=== PATIENT | female | born 1970 | race Caucasian/White ===

== ENCOUNTER 2022-05-19 00:50 | Emergency (ER) | payer MEDICARE, OTHER ==
[~2022-05-19] VITALS: Ht 167.6 cm; Wt 90.7 kg
[2022-05-19 02:43] LABS: Bun/Creatinine Ratio 16.2 (12.0-20.0); Calcium, Blood 8.5 mg/dL (8.5-10.1); Creatinine, Blood 0.74 mg/dL (0.40-1.00); Potassium, Blood 3.5 mmol/L (3.5-5.5); Prolactin 8.3 ng/mL (2.74-19.64)
== END 2022-05-19 04:43 | disposition home or self-care (01) ==
LOC: ER 00:50
PROVIDERS: Student in an Organized Health Care Education/Training Program
DX: R56.9 Unspecified convulsions (principal); E11.9 Type 2 diabetes mellitus without complications; F10.129 Alcohol abuse with intoxication, unspecified; Y90.8 Blood alcohol level of 240 mg/100 ml or more; Z79.84 Long term (current) use of oral hypoglycemic drugs; Z79.899 Other long term (current) drug therapy
CPT/HCPCS: 36415; 80048; 84146; 96374; 99284-25; G0480; J1953; J7030

== ENCOUNTER → 2022-07-17 | Outpatient (CLI) | payer MEDICARE, OTHER ==
[2022-07-18 09:33] LABS: BASOPHILS ABSOLUTE AUTO 0.08 K/mm3 (0.00-0.23); BASOPHILS PERCENT AUTO 1 % (0-2); EOSINOPHILS ABSOLUTE AUTO 0.19 K/mm3 (0.00-0.68); EOSINOPHILS PERCENT AUTO 2 % (0-6); Hematocrit 42.3 % (33.0-51.0); Hemoglobin 13.9 g/dL (11.5-16.0); IMMATURE GRAN ABSOLUTE AUTO 0.02 K/mm3 (0.00-0.10); IMMATURE GRAN PERCENT AUTO 0 % (0-1); LYMPHOCYTES ABSOLUTE AUTO 2.74 K/mm3 (0.84-5.20); LYMPHOCYTES PERCENT AUTO 28 % (21-46); MONOCYTES ABSOLUTE AUTO 0.56 K/mm3 (0.16-1.47); MONOCYTES PERCENT AUTO 6 % (4-13); Mean Corpuscular HGB 28.9 pg (26.0-34.0); Mean Corpuscular HGB Conc 32.9 g/dL (31.5-36.5); Mean Corpuscular Volume 88 fL (80-100); Mean Platelet Volume 10.9 fL (9.1-12.4); NEUTROPHILS ABSOLUTE AUTO 6.37 K/mm3 (1.96-9.15); NEUTROPHILS PERCENT AUTO 64 % (41-73); Platelet Count 286 K/mm3 (150-400); RDW Standard Deviation 41.8 fL (35.1-46.3); Red Blood Cell Count 4.81 M/mm3 (3.80-5.20); White Blood Cell Count 9.96 K/mm3 (4.00-11.30)
[2022-07-18 10:12] LABS: Very Low Density Lipoprot Chol 39 mg/dL (6-32)
[2022-07-18 10:20] LABS: Alanine Aminotransfer (ALT/SGP 34 U/L (12-78); Albumin, Blood 3.6 g/dL (3.4-5.0); Albumin/Globulin Ratio 0.8 (0.8-1.8); Alk Phos 116 U/L (50-136); Anion Gap 5 mmol/L (6-16); Aspartate Aminotrans (AST/SGOT 27 U/L (12-37); Bilirubin, Total 0.5 mg/dL (0.1-1.0); Blood Urea Nitrogen 12 mg/dL (8-24); Bun/Creatinine Ratio 16.3 (12.0-20.0); CHOL/HDL RATIO 4.3; CO2, Blood 26 mmol/L (21-32); Calcium, Blood 8.8 mg/dL (8.5-10.1); Chloride, Blood 104 mmol/L (98-108); Cholesterol 216 mg/dL (50-200); Creatinine, Blood 0.73 mg/dL (0.40-1.00); Globulin, Blood 4.3 g/dL (2.2-4.0); Glomerular Filtration Rate 100 (60-); Glucose, Blood 112 mg/dL (70-99); HDL Cholesterol 50 mg/dL (>39); LDL/HDL RATIO 2.5; Low Density Lipoprotein Chol 127 mg/dL (0-110); Potassium, Blood 3.9 mmol/L (3.5-5.5); Sodium, Blood 135 mmol/L (136-145); Total Protein, Blood 7.9 g/dL (6.4-8.2); Triglycerides 197 mg/dL (30-160)
== END | disposition home or self-care (01) ==
LOC: LAB SHORT 15:30 → LAB 15:30
PROVIDERS: Family Medicine
DX: R10.9 Unspecified abdominal pain (principal); Z79.899 Other long term (current) drug therapy
CPT/HCPCS: 80053; 80061; 80177; 84443; 85025; 87086

== ENCOUNTER → 2024-03-05 | Outpatient (CLI) | payer MEDICARE, OTHER ==
[2024-03-06 11:39] LABS: Bacterial Vaginosis PCR Negative (NEGATIVE); Candida Group, PCR NOT DETECTED (NOT DETECT)
[2024-03-06 11:40] LABS: Candida glabrata-krusei, PCR DETECTED (NOT DETECT)
== END ==
LOC: LAB SHORT 16:06 → LAB 16:06
PROVIDERS: Student in an Organized Health Care Education/Training Program
DX: N89.8 Other specified noninflammatory disorders of vagina (principal); R30.0 Dysuria
CPT/HCPCS: 87086; 87481; 87661; 87801

== ENCOUNTER 2024-05-09 15:09 | Emergency (ER) | payer MEDICARE, OTHER ==
[~2024-05-09] VITALS: Ht 175.3 cm; Wt 113.4 kg
[2024-05-09 15:19] VITALS: BP 131/78
[2024-05-10] MEDS ORDERED: LEVE500 PO (18:07)
[2024-05-10] MEDS ORDERED: GABA300 PO (18:08)
[2024-05-10] MEDS ORDERED: PANT40 PO (18:08)
[2024-05-10] MEDS ORDERED: LEVSOD112 PO (18:08)
[2024-05-10] MEDS ORDERED: PRAZ2 PO (18:09)
[2024-05-10] MEDS ORDERED: METF500 PO (18:09)
[2024-05-10] MEDS ORDERED: PRAZ5 PO (18:09)
== END 2024-05-09 17:31 | disposition left against medical advice (07) ==
LOC: ER 15:09
DX: R30.0 Dysuria (principal); J45.909 Unspecified asthma, uncomplicated; Z88.0 Allergy status to penicillin; Z88.5 Allergy status to narcotic agent
CPT/HCPCS: 99282

== ENCOUNTER 2024-05-10 04:39 | Inpatient (IN) | payer MEDICARE, OTHER ==
[~2024-05-10] VITALS: Ht 175.3 cm; Wt 113.4 kg
[2024-05-10] MEDS ORDERED: FentaNYL Citrate 50 MCG/ML 2 ML Injection IV ONE ×2 (05:15→08:45)
[2024-05-10] MEDS ORDERED: NS 1,000 ML IV SCH (05:15)
[2024-05-10 06:13] LABS: BASOPHILS ABSOLUTE AUTO 0.09 K/mm3 (0.00-0.23); BASOPHILS PERCENT AUTO 1 % (0-2); EOSINOPHILS ABSOLUTE AUTO 0.32 K/mm3 (0.00-0.68); EOSINOPHILS PERCENT AUTO 3 % (0-6); Hematocrit 42.7 % (33.0-51.0); Hemoglobin 13.9 g/dL (11.5-16.0); IMMATURE GRAN ABSOLUTE AUTO 0.04 K/mm3 (0.00-0.10); IMMATURE GRAN PERCENT AUTO 0 % (0-1); LYMPHOCYTES ABSOLUTE AUTO 3.32 K/mm3 (0.84-5.20); LYMPHOCYTES PERCENT AUTO 26 % (21-46); MONOCYTES ABSOLUTE AUTO 0.79 K/mm3 (0.16-1.47); MONOCYTES PERCENT AUTO 6 % (4-13); Mean Corpuscular HGB 28.3 pg (26.0-34.0); Mean Corpuscular HGB Conc 32.6 g/dL (31.5-36.5); Mean Corpuscular Volume 87 fL (80-100); Mean Platelet Volume 10.1 fL (9.1-12.4); NEUTROPHILS ABSOLUTE AUTO 8.18 K/mm3 (1.96-9.15); NEUTROPHILS PERCENT AUTO 64 % (41-73); Platelet Count 313 K/mm3 (150-400); RDW Coefficient Variation 12.5 % (11.7-14.2); RDW Standard Deviation 39.8 fL (35.1-46.3); Red Blood Cell Count 4.92 M/mm3 (3.80-5.20); White Blood Cell Count 12.74 K/mm3 (4.00-11.30)
[2024-05-10 06:27] LABS: Source, Urine Clean Catch
[2024-05-10 06:35] LABS: Bilirubin, Urine Neg (Neg); Blood, Urine 1+ (Neg); Glucose Qualitative, Urine Neg (Neg); Ketones, Urine Neg (Neg); Leukocyte Esterase, Urine Neg (Neg); Nitrite, Urine Neg (Neg); Protein, Urine Neg (Neg); Specific Gravity, Urine 1.025 (1.003-1.022); Urobilinogen, Urine NORM (Normal)
[2024-05-10 06:53] LABS: Albumin/Globulin Ratio 0.8 (0.8-1.8); Bilirubin, Total 0.7 mg/dL (0.1-1.0); Bun/Creatinine Ratio 18.4 (12.0-20.0); Calcium, Blood 8.9 mg/dL (8.5-10.1); Creatinine, Blood 0.65 mg/dL (0.40-1.00); Globulin, Blood 3.8 g/dL (2.2-4.0); Potassium, Blood 5.3 mmol/L (3.5-5.5); Total Protein, Blood 6.8 g/dL (6.4-8.2)
[2024-05-10 07:27] LABS: Appearance, Urine Clear (Clear); Color, Urine Yellow (P-Yellow); Mucus Mod (0-Heavy); Squamous Epithelial Cells Many /hpf (Few)
[2024-05-10 07:28] LABS: Bacteria Many /hpf; White Blood Cells, Urine 0-2 /hpf (0-5)
[2024-05-10 07:31] LABS: CORONAVIRUS COVID-19 AG Negative (NEGATIVE); INFLUENZA A AG Negative (NEGATIVE); INFLUENZA B AG Negative (NEGATIVE)
[2024-05-10] MEDS ORDERED: LevoFLOXacin 500MG/D5W 100ML 100 ML IV ONE (08:45)
[2024-05-10] MEDS ORDERED: MetroNIDAZOLE 500MG/NS 100 ml 100 ML IV ONE (08:45)
[2024-05-10] MEDS ORDERED: FLU VACC TS2024-25(6MOS UP)/PF 45 MCG/0.5 ML SYRINGE IM ONE (10:20)
[2024-05-10] MEDS ORDERED: Lactated Ringer's 1,000 ML IV SCH (10:20)
[2024-05-10] MEDS ORDERED: CeFAZolin Sodium 1,000 MG in NS 50 ML IV SCH (10:28)
[2024-05-10] MEDS ORDERED: Prazosin HCl 1 MG Cap PO SCH (10:32)
[2024-05-10] MEDS ORDERED: Levothyroxine Sodium 0.112 MG Tab PO SCH (11:00)
[2024-05-10] MEDS ORDERED: LevETIRAcetam 500 MG Tab PO SCH (11:00)
[2024-05-10] MEDS ORDERED: Insulin Regular 100 UNIT/ML 10ML Vial SC SCH (11:30)
[2024-05-10 13:48] VITALS: BP 115/75
--- NOTE | 2024-05-10 13:57 | NUR ---
ARRIVAL TO UNIT PT ARRIVED TO UNIT. ABLE TO STAND AND TRANSFER TO BED INDEPENDENTLY. REPORTS PAIN TO LOWER MIDDLE OF ABDOMEN. SPOKE WITH HOSPITALIST ABOUT PAIN MEDICATIONS ORDERS BEING PLACED AT THIS TIME. PT RESTING IN BED, COMFORTABLE WHILE WAITING. DENIES NAUSEA CURRENTLY. DR. TODD IN TO SEE PATIENT. OKAY FOR PATIENT TO HAVE REGULAR DIET AT THIS TIME.
[2024-05-10] MEDS ORDERED: FentaNYL Citrate 50 MCG/ML 2 ML Injection IV PRN (14:00)
[2024-05-10] MEDS ORDERED: Ondansetron HCl 2 MG / ML 2ML Vial IV PRN (14:00)
[2024-05-10] MEDS ORDERED: HYDROcodone 5-APAP 325 TAB PO PRN (14:00)
[2024-05-10] MEDS ORDERED: LEVE500 PO (18:07)
[2024-05-10] MEDS ORDERED: LEVSOD112 PO (18:08)
[2024-05-10] MEDS ORDERED: PANT40 PO (18:08)
[2024-05-10] MEDS ORDERED: GABA300 PO (18:08)
[2024-05-10] MEDS ORDERED: PRAZ5 PO (18:09)
[2024-05-10] MEDS ORDERED: PRAZ2 PO (18:09)
[2024-05-10] MEDS ORDERED: METF500 PO (18:09)
[2024-05-10 20:06] VITALS: BP 102/62
[2024-05-10] MEDS ORDERED: Gabapentin 300 MG Cap PO SCH (21:00)
[2024-05-10] MEDS ORDERED: Prazosin HCL 5 MG Cap PO SCH (21:00)
[2024-05-10] MEDS ORDERED: Lactobacil 2-S.Thermo-Bifido 1 1 Cap PO SCH (21:00)
[2024-05-11 05:55] VITALS: BP 106/60
[2024-05-11] MEDS ORDERED: Pantoprazole Sodium 40 MG Tab PO SCH (06:00)
--- NOTE | 2024-05-11 06:30 | NUR ---
SHIFT SUMMARY NOC. PT ADMIT FOR DIVERTIC ABSCESS. PT A/OX4. PT MEDICATED FOR PAIN WITH NORCO AND IV FENT FOR PAIN. PT REPORTED IMPROVEMENT WITH PAIN MEDICATION. PT GIVEN ZOFRAN FOR NAUSEA. PT PLACED ON CONT BIOX FOR HIGH RISK PAIN MANAGEMENT. PT VERBALIZED USING A CPAP AT HOME AND REQUESTED TO USE HOSPITAL CPAP. RT SET UP MACHINE. PT HAD ONE DESAT EVENT PRIOR TO CPAP USE, O2 IMPROVED AFTER PLACING ON NASAL CANULA. ONCE CPAP IN PLACE, BLEED IN FOR O2 WAS NOT NEEDED. PT MAKES NEEDS KNOWN AND CALLS APPROPRIATELY.
[2024-05-11 07:26] VITALS: BP 92/59
[2024-05-11] MEDS ORDERED: Enoxaparin 40 MG/0.4 ML SYR SC SCH (09:00)
[2024-05-11 09:05] VITALS: BP 101/73
[2024-05-11] MEDS ORDERED: Polyethylene Glycol 3350 17 gm PO SCH (10:05)
--- NOTE | 2024-05-11 10:22 | NUR ---
AGREE WITH STUDENT NURSE SHIFT ASSESSMENT
[2024-05-11 16:10] VITALS: BP 111/61
--- NOTE | 2024-05-11 16:31 | NUR ---
SHIFT SUMMARY: PT HERE FOR DIVERTICULITIS WITH MICROABSCESS. PAIN MANAGED PER EMAR AND NONPHARMACEUTICAL INTERVENTIONS. FENTANYL GIVEN ONCE FOR BREAK THROUGH PAIN MANAGMENT. NO NUEROLOGICAL CHANGES, PT IS A/OX4. NO CARDIAC CHANGES. OXYGEN REMAINED GREATER THAN 95% ON ROOM AIR T/O SHIFT. PT RECIEVING ANTIBIOTICS. IV IN L AC WAS LEAKING, D/C AND NEW 22G IV IN R AC. PT TOLERATING REGULAR DIET, NO N/V. IND AMBULATED HALLWAY TODAY.PT ANXIOUS AT TIMES, CALMED DOWN VIA THERAPEUTIC COMMUNICATION.
[2024-05-11 19:45] VITALS: BP 108/58
[2024-05-11] MEDS ORDERED: Sennosides 8.6 MG Tab PO SCH (21:00)
[2024-05-12] MEDS ORDERED: HYDROcodone 5-APAP 325 TAB PO PRN
[2024-05-12 04:21] VITALS: BP 103/67
[2024-05-12 05:31] LABS: BASOPHILS ABSOLUTE AUTO 0.07 K/mm3 (0.00-0.23); BASOPHILS PERCENT AUTO 1 % (0-2); EOSINOPHILS ABSOLUTE AUTO 0.21 K/mm3 (0.00-0.68); EOSINOPHILS PERCENT AUTO 3 % (0-6); Hematocrit 35.4 % (33.0-51.0); Hemoglobin 11.6 g/dL (11.5-16.0); IMMATURE GRAN ABSOLUTE AUTO 0.02 K/mm3 (0.00-0.10); IMMATURE GRAN PERCENT AUTO 0 % (0-1); LYMPHOCYTES PERCENT AUTO 37 % (21-46); MONOCYTES PERCENT AUTO 8 % (4-13); Mean Corpuscular HGB 28.5 pg (26.0-34.0); Mean Corpuscular HGB Conc 32.8 g/dL (31.5-36.5); Mean Corpuscular Volume 87 fL (80-100); Mean Platelet Volume 9.8 fL (9.1-12.4); NEUTROPHILS ABSOLUTE AUTO 3.78 K/mm3 (1.96-9.15); NEUTROPHILS PERCENT AUTO 51 % (41-73); Platelet Count 267 K/mm3 (150-400); RDW Coefficient Variation 12.5 % (11.7-14.2); RDW Standard Deviation 39.7 fL (35.1-46.3); Red Blood Cell Count 4.07 M/mm3 (3.80-5.20); White Blood Cell Count 7.48 K/mm3 (4.00-11.30)
[2024-05-12 06:09] LABS: Albumin/Globulin Ratio 0.9 (0.8-1.8); Bilirubin, Total 0.4 mg/dL (0.1-1.0); Bun/Creatinine Ratio 16.3 (12.0-20.0); Calcium, Blood 8.2 mg/dL (8.5-10.1); Creatinine, Blood 0.92 mg/dL (0.40-1.00); Globulin, Blood 3.5 g/dL (2.2-4.0); Potassium, Blood 3.8 mmol/L (3.5-5.5); Total Protein, Blood 6.5 g/dL (6.4-8.2)
[2024-05-12 07:33] VITALS: BP 100/62
[2024-05-12] MEDS ORDERED: NS 250 ML IV PRN (08:50)
--- NOTE | 2024-05-12 14:22 | NUR ---
DISCHARGE PATIENT VSS, IV, AND POWER GLIDE TAKEN OUT INTACT.PRESCRIPTIONS FAXED TO [facility]. HARD SCRIPT GIVEN TO PATIENT WITH FOLDER. ALL INSTRUCTIONS READ AND SIGNED. PATIENT WHEELED OUT TO PRIVATE VEHICLE. WITH BELONINGS.
== END 2024-05-12 13:45 | disposition home or self-care (01) | DRG 392 ==
LOC: ER 04:39 → SURS 10:15
PROVIDERS: Emergency Medicine; Student in an Organized Health Care Education/Training Program; Surgery; ADMIT Internal Medicine
DX: K57.20 Diverticulitis of large intestine with perforation and abscess without bleeding (principal); F41.9 Anxiety disorder, unspecified; E11.9 Type 2 diabetes mellitus without complications; E03.9 Hypothyroidism, unspecified; K21.9 Gastro-esophageal reflux disease without esophagitis; G40.909 Epilepsy, unspecified, not intractable, without status epilepticus; G47.30 Sleep apnea, unspecified; Z88.0 Allergy status to penicillin; Z79.84 Long term (current) use of oral hypoglycemic drugs; Z79.890 Hormone replacement therapy; Z88.5 Allergy status to narcotic agent; Z88.8 Allergy status to other drugs, medicaments and biological substances
CPT/HCPCS: 36415; 74177; 80053; 81001; 82947; 83690; 85025; 87086; 87428-QW; 94660; 96365-59; 96375; 96376; 99285-25; A9270; C1751; J0690; J1650; J1956; J2405; J3010; J7030; J7050; J7120; Q9967

== ENCOUNTER 2024-10-12 20:12 | Emergency (ER) | payer MEDICARE, OTHER ==
[~2024-10-12] VITALS: Ht 175.3 cm; Wt 105.7 kg
[~2024-10-12 20:12] MED LIST: ALBU2.5V5 INH; ALBU90OI INH; ARTHRITIS PAIN150 GM TOP; AZELASTINE137 MCG/01; CYCL10 PO; GABA300 PO; LEVE500 PO; LEVSOD112 PO; METF500 PO; NYSTOP15 GM TOP; ONDA8 PO; PANT40 PO; PRAZ2 PO; PRAZ5 PO; VENL75ER PO
[2024-10-12 20:39] VITALS: BP 122/79
== END 2024-10-12 23:49 | disposition home or self-care (01) ==
LOC: ER 20:12
DX: S61.512A Laceration without foreign body of left wrist, initial encounter (principal); J45.909 Unspecified asthma, uncomplicated; W26.0XXA Contact with knife, initial encounter; Z79.84 Long term (current) use of oral hypoglycemic drugs; Z79.899 Other long term (current) drug therapy; Z88.0 Allergy status to penicillin; Z91.048 Other nonmedicinal substance allergy status; Z88.5 Allergy status to narcotic agent; Z91.030 Bee allergy status
CPT/HCPCS: 12001; 90471; 90715; 99282-25

== ENCOUNTER 2024-10-24 14:55 | Emergency (ER) | payer MEDICARE, OTHER ==
[~2024-10-24] VITALS: Ht 175.3 cm; Wt 99.8 kg
[2024-10-24 15:31] LABS: BASOPHILS ABSOLUTE AUTO 0.06 K/mm3 (0.00-0.23); BASOPHILS PERCENT AUTO 1 % (0-2); EOSINOPHILS ABSOLUTE AUTO 0.24 K/mm3 (0.00-0.68); EOSINOPHILS PERCENT AUTO 2 % (0-6); Hematocrit 42.4 % (33.0-51.0); Hemoglobin 14.1 g/dL (11.5-16.0); IMMATURE GRAN ABSOLUTE AUTO 0.04 K/mm3 (0.00-0.10); IMMATURE GRAN PERCENT AUTO 0 % (0-1); LYMPHOCYTES ABSOLUTE AUTO 3.06 K/mm3 (0.84-5.20); LYMPHOCYTES PERCENT AUTO 27 % (21-46); MONOCYTES ABSOLUTE AUTO 0.72 K/mm3 (0.16-1.47); MONOCYTES PERCENT AUTO 7 % (4-13); Mean Corpuscular HGB Conc 33.3 g/dL (31.5-36.5); Mean Corpuscular Volume 85 fL (80-100); NEUTROPHILS ABSOLUTE AUTO 7.04 K/mm3 (1.96-9.15); NEUTROPHILS PERCENT AUTO 63 % (41-73); NRBC ABSOLUTE 0.00 K/mm3 (0.00-0.02); NRBC Auto 0.0 /100 WBC (0.0-0.2); Platelet Count 325 K/mm3 (150-400); RDW Coefficient Variation 12.8 % (11.7-14.2); RDW Standard Deviation 39.3 fL (35.1-46.3)
[2024-10-24 15:52] LABS: Alanine Aminotransfer (ALT/SGP 24.0 U/L (12-78); Albumin, Blood 3.6 g/dL (3.4-5.0); Albumin/Globulin Ratio 0.8 (0.8-1.8); Anion Gap 8.0 mmol/L (3-11); Aspartate Aminotrans (AST/SGOT 21.0 U/L (12-37); Bilirubin, Total 0.9 mg/dL (0.1-1.0); Blood Urea Nitrogen 15.0 mg/dL (8-24); CO2, Blood 25.0 mmol/L (21-32); Calcium, Blood 8.7 mg/dL (8.5-10.1); Chloride, Blood 105.0 mmol/L (98-108); Creatinine, Blood 0.97 mg/dL (0.40-1.00); Globulin, Blood 4.4 g/dL (2.2-4.0); Glucose, Blood 125.0 mg/dL (70-99); Potassium, Blood 4.0 mmol/L (3.5-5.5); Sodium, Blood 134.0 mmol/L (136-145); Total Protein, Blood 8.0 g/dL (6.4-8.2)
[2024-10-24] MEDS ORDERED: Ketorolac Tromethamine 15mg Vial IV ONE (16:20)
[2024-10-24 16:57] VITALS: BP 125/78
== END 2024-10-24 16:58 | disposition home or self-care (01) ==
LOC: ER 14:55
PROVIDERS: Emergency Medicine
DX: R07.9 Chest pain, unspecified (principal); R94.31 Abnormal electrocardiogram [ECG] [EKG]; S61.512D Laceration without foreign body of left wrist, subsequent encounter; X58.XXXD Exposure to other specified factors, subsequent encounter; Z88.0 Allergy status to penicillin; Z91.030 Bee allergy status; Z88.8 Allergy status to other drugs, medicaments and biological substances; J45.909 Unspecified asthma, uncomplicated; F43.10 Post-traumatic stress disorder, unspecified; Z90.710 Acquired absence of both cervix and uterus
CPT/HCPCS: 36415; 71046; 80053; 83690; 84484; 85025; 85379; J1885

== ENCOUNTER → 2024-12-11 | Outpatient (CLI) | payer MEDICARE, OTHER ==
[2024-12-11 15:18] LABS: Influenza A/2009-H1 Not Detected (NOT DETECT); SARS-Cov-2 (COVID-19), BioFire Not Detected (NOT DETECT)
== END ==
LOC: LAB 11:19 → LAB SHORT 11:19
PROVIDERS: Student in an Organized Health Care Education/Training Program
DX: J06.9 Acute upper respiratory infection, unspecified (principal)
CPT/HCPCS: 0202U

== ENCOUNTER 2025-01-22 17:49 | Emergency (ER) | payer MEDICARE, OTHER ==
[~2025-01-22] VITALS: Ht 175.3 cm; Wt 105.2 kg
[2025-01-22 18:19] LABS: BASOPHILS ABSOLUTE AUTO 0.07 K/mm3 (0.00-0.23); BASOPHILS PERCENT AUTO 1 % (0-2); EOSINOPHILS ABSOLUTE AUTO 0.68 K/mm3 (0.00-0.68); EOSINOPHILS PERCENT AUTO 8 % (0-6); Hematocrit 37.1 % (33.0-51.0); Hemoglobin 12.3 g/dL (11.5-16.0); IMMATURE GRAN ABSOLUTE AUTO 0.02 K/mm3 (0.00-0.10); IMMATURE GRAN PERCENT AUTO 0 % (0-1); LYMPHOCYTES ABSOLUTE AUTO 2.52 K/mm3 (0.84-5.20); LYMPHOCYTES PERCENT AUTO 29 % (21-46); MONOCYTES ABSOLUTE AUTO 0.76 K/mm3 (0.16-1.47); MONOCYTES PERCENT AUTO 9 % (4-13); Mean Corpuscular HGB Conc 33.2 g/dL (31.5-36.5); Mean Corpuscular Volume 86 fL (80-100); NEUTROPHILS ABSOLUTE AUTO 4.57 K/mm3 (1.96-9.15); NEUTROPHILS PERCENT AUTO 53 % (41-73); NRBC ABSOLUTE 0.00 K/mm3 (0.00-0.02); NRBC Auto 0.0 /100 WBC (0.0-0.2); Platelet Count 269 K/mm3 (150-400); RDW Coefficient Variation 13.0 % (11.7-14.2); RDW Standard Deviation 39.9 fL (35.1-46.3)
[2025-01-22 18:42] LABS: Alanine Aminotransfer (ALT/SGP 88.0 U/L (12-78); Albumin, Blood 3.3 g/dL (3.4-5.0); Albumin/Globulin Ratio 0.9 (0.8-1.8); Anion Gap 7.0 mmol/L (3-11); Aspartate Aminotrans (AST/SGOT 70.0 U/L (12-37); Bilirubin, Total 0.7 mg/dL (0.1-1.0); Blood Urea Nitrogen 16.0 mg/dL (8-24); CO2, Blood 29.0 mmol/L (21-32); Calcium, Blood 8.7 mg/dL (8.5-10.1); Chloride, Blood 105.0 mmol/L (98-108); Creatinine, Blood 0.79 mg/dL (0.40-1.00); Globulin, Blood 3.6 g/dL (2.2-4.0); Glucose, Blood 86.0 mg/dL (70-99); Potassium, Blood 3.8 mmol/L (3.5-5.5); Sodium, Blood 137.0 mmol/L (136-145); Total Protein, Blood 6.9 g/dL (6.4-8.2)
[2025-01-22] MEDS ORDERED: METOPROLOL SUCC25 MG PO (21:54)
[2025-01-22] MEDS ORDERED: LEVOTHYROXINE112 M18 PO (21:55)
[2025-01-22] MEDS ORDERED: METFORMIN HCL500 M2 PO (21:55)
[2025-01-22] MEDS ORDERED: ATORVASTATIN CA20 MG PO (21:55)
[2025-01-22] MEDS ORDERED: NITROGLYCERIN0.4 M3 SL (21:57)
[2025-01-22] MEDS ORDERED: PRAZ2 PO ×2 (21:58→22:09)
[2025-01-22] MEDS ORDERED: CYCL10 PO (21:59)
[2025-01-22] MEDS ORDERED: PANTOPRAZOLE SO40 M2 PO (22:02)
[2025-01-22] MEDS ORDERED: ISOSORBIDE MONO30 MG PO (22:02)
[2025-01-22] MEDS ORDERED: Diflucan150 MG PO (22:04)
[2025-01-22 23:15] VITALS: BP 111/66
[2025-01-27] MEDS ORDERED: ASPI81CH PO (12:52)
[2025-01-27] MEDS ORDERED: Isosorbide Mono30 MG PO (12:53)
== END 2025-01-22 23:20 | disposition home or self-care (01) ==
LOC: ER 17:49
PROVIDERS: Student in an Organized Health Care Education/Training Program
DX: R42 Dizziness and giddiness (principal); T44.7X5A Adverse effect of beta-adrenoreceptor antagonists, initial encounter; F43.10 Post-traumatic stress disorder, unspecified; E03.9 Hypothyroidism, unspecified; G47.33 Obstructive sleep apnea (adult) (pediatric); J45.909 Unspecified asthma, uncomplicated; Z68.34 Body mass index [BMI] 34.0-34.9, adult; Z79.899 Other long term (current) drug therapy; Z79.84 Long term (current) use of oral hypoglycemic drugs; Z88.0 Allergy status to penicillin; Z91.048 Other nonmedicinal substance allergy status; Z88.5 Allergy status to narcotic agent; Z91.030 Bee allergy status
CPT/HCPCS: 71046; 80053; 84484; 85025; 99285-25

== ENCOUNTER 2025-01-28 07:55 | Day surgery (SDC) | payer MEDICARE, OTHER ==
[2025-01-28] VITALS (9 sets, daily range): BP systolic 94–106; BP diastolic 56–79
[~2025-01-28] VITALS: Ht 175.3 cm; Wt 103.0 kg
[~2025-01-28 07:55] MED LIST changes: +ASPI81CH PO; +ATORVASTATIN CA20 MG PO; +Diflucan150 MG PO; +ISOSORBIDE MONO30 MG PO; +Isosorbide Mono30 MG PO; +LEVOTHYROXINE112 M18 PO; +METFORMIN HCL500 M2 PO; +METOPROLOL SUCC25 MG PO; +NITROGLYCERIN0.4 M3 SL; +PANTOPRAZOLE SO40 M2 PO
[2025-01-28] MEDS ORDERED: Verapamil HCL 2.5 MG/ML 2ML Injection ONE (08:00)
[2025-01-28] MEDS ORDERED: NS 1,000 ML IV ONE ×2 (08:00→08:14)
[2025-01-28] MEDS ORDERED: Heparin Sodium 1000 Units/ML 10ML MDV ONE ×2 (08:00→08:20)
[2025-01-28] MEDS ORDERED: Nitroglycerin 2 MG/20 ML BTL ONE (08:01)
[2025-01-28] MEDS ORDERED: NS 250 ML IV ONE (08:01)
[2025-01-28] MEDS ORDERED: FentaNYL Citrate 50 MCG/ML 2 ML Injection ONE (08:53)
[2025-01-28] MEDS ORDERED: Midazolam HCl 1MG / ML 2ML Vial ONE (08:53)
--- NOTE | 2025-01-28 09:50 | NUR ---
pt back to recovery from lab. pt a&o. radial site soft and non-tender per pt. no bleeding/hematoma noted. dr neff at bedside to discuss procedural findings and future plan of care.
[2025-01-28] MEDS ORDERED: VERA120 PO (10:15)
--- NOTE | 2025-01-28 10:34 | NUR ---
RADIAL SITE SOFT AND NON-TENDER PER PT. NO BLEEDING/HEMATOMA NOTED.
--- NOTE | 2025-01-28 11:03 | NUR ---
2cc removed from tr band. site soft and non-tender per pt. no bleeding/hematoma noted.
--- NOTE | 2025-01-28 11:19 | NUR ---
tr band fully deflated. site soft and non-tender per pt. no bleeding/hematoma noted.
--- NOTE | 2025-01-28 12:44 | NUR ---
pt given dc instructions and verbalized understanding. iv out. pt changed. radial site soft and non-tender per pt. no bleeding/hematoma noted. cloth dot, arm board, and sling appllied. pt taken to [facility] via [place]. boyfriend to take pt home.
== END 2025-01-28 12:52 | disposition home or self-care (01) ==
LOC: MHTC 07:55
DX: I25.10 Atherosclerotic heart disease of native coronary artery without angina pectoris (principal); Q24.5 Malformation of coronary vessels; E11.9 Type 2 diabetes mellitus without complications; I10 Essential (primary) hypertension; E78.5 Hyperlipidemia, unspecified; G47.33 Obstructive sleep apnea (adult) (pediatric); G40.909 Epilepsy, unspecified, not intractable, without status epilepticus; J45.909 Unspecified asthma, uncomplicated; M19.90 Unspecified osteoarthritis, unspecified site; K21.9 Gastro-esophageal reflux disease without esophagitis; E03.9 Hypothyroidism, unspecified; Z79.82 Long term (current) use of aspirin; Z79.84 Long term (current) use of oral hypoglycemic drugs; Z79.890 Hormone replacement therapy; Z79.899 Other long term (current) drug therapy; Z88.0 Allergy status to penicillin; Z88.5 Allergy status to narcotic agent; Z88.8 Allergy status to other drugs, medicaments and biological substances; Z91.030 Bee allergy status; Z91.038 Other insect allergy status; Z91.048 Other nonmedicinal substance allergy status
CPT/HCPCS: 76937; 93458; 99152; 99153; A9270; C1769; C1887; C1894; J1644; J2250; J3010; J7030; J7050; Q9967